=== PATIENT | female | born 1995 | race Caucasian/White ===

== ENCOUNTER 2018-05-07 17:40 | Emergency (ER) | payer OTHER ==
[~2018-05-07] VITALS: Ht 162.6 cm; Wt 65.8 kg
[2018-05-07 17:45] VITALS: BP 132/80
--- NOTE | 2018-05-07 18:13 | NUR ---
PT TO ED DT FEVER AND CHILLS. CURRENTLY ON ZPACK. CO NECK PAIN, URGENT CAR ADVISED HER TO GO TO ED TO RO MENINGITIS, PT IS AFEBRILE AT THIS TIME
== END 2018-05-07 18:48 | disposition home or self-care (01) ==
LOC: ER 17:42
DX: J02.9 Acute pharyngitis, unspecified (principal); Z88.2 Allergy status to sulfonamides
CPT/HCPCS: A4606; Z7610